=== PATIENT | female | born 1955 | race Caucasian/White ===

== ENCOUNTER 2019-04-20 12:13 | Outpatient (CLI) | payer BC ==
--- NOTE | 2019-04-20 12:47 | RAD ---
Lumbar spine: Total 3 views. Lateral views were obtained with neutral, flexion, and extension. INDICATIONS:Low back pain COMPARISON:None FINDINGS: Vertebral bodies maintain height and alignment. Alignment is preserved with flexion and extension. Mild to moderate degenerative osteophytes are seen from the lumbar vertebra. Loss of disc space at L4-5 and L5-S1. Normal alignment is maintained. No lytic or blastic process. Facet hypertrophy is noted. No soft tissue abnormality. IMPRESSION: [id number] degenerative changes of lumbar spine.
--- NOTE | 2019-04-20 17:19 | MRI ---
MRI Lumbar Spine Noncontrast: HISTORY: Chronic back pain radiating down right leg with associated numbness in left leg. COMPARISON: None FINDINGS: The visualized retroperitoneal structures demonstrate a normal appearance. Conus medullaris is normal in morphology and terminates at the L1-2 level. T12-L1 level: There is a mild disc osteophyte complex with only slight effacement of the ventral suba rachnoid space. The neural foramina are patent L1-2: There are mild endplate degenerative changes with mild loss of intervertebral disc height. Ther e is a broad-based disc osteophyte complex present eccentrically greater on the right resulting in effacement of the ventral aspect of the thecal sac. The left neural foramen is patent. There is mild right-sided neural foraminal narrowing. L2-3: There is minimal disc osteophyte complex resulting slight effacement of the ventral aspect of t he thecal sac. There is mild right and mild/moderate left-sided neural foraminal narrowing. L3-4: There is loss of intervertebral disc height. Osteophytes are seen anteriorly at this level. Dis c osteophyte complex is present which results in mild generalized narrowing of the central spinal canal. There are facet hypertrophic changes present. Findings result in moderate left and mild right- sided neural foraminal narrowing. L4-5: There is mild loss of intervertebral disc height. There is broad-based disc osteophyte complex present with left foraminal disc protrusion. Facet hypertrophic changes are present at this level greater on the left. Findings result in moderate to severe left-sided neural foraminal narrowing with mild right-sided neural foraminal narrowing. There is mild narrowing of the central spinal canal at this level. Ligamentous thickening is present. L5-S1: There is a broad-based disc osteophyte complex with central disc protrusion. This disc protrus ion does slightly efface the thecal sac and does encroach on the traversing bilateral S1 nerve roots. Facet hypertrophic changes are present at this level. There is moderate to severe right and mi ld left-sided neural foraminal narrowing. IMPRESSION: Multilevel disc degenerative changes. Findings are greatest involving the lower lumbar spine. There i s moderate to severe left-sided neural foraminal narrowing at the L4-5 level with moderate to severe right-sided neural foraminal narrowing at the L5-S1 level.
== END 2019-04-20 12:14 | disposition home or self-care (01) ==
LOC: SCSMRI 12:13
PROVIDERS: ATTEND Anesthesiology Pain Medicine
DX: M48.062 Spinal stenosis, lumbar region with neurogenic claudication (principal); M47.816 Spondylosis without myelopathy or radiculopathy, lumbar region; M48.07 Spinal stenosis, lumbosacral region
CPT/HCPCS: 72100; 72148

== ENCOUNTER 2019-06-22 05:35 | Day surgery (SDC) | payer BC ==
[2019-06-15 12:36] VITALS: BMI 29.0
[2019-06-15 13:49] LABS: Hemoglobin 13.8 g/dL (12.0-16.0); Mean Corpuscular Hemoglobin 31.6 pg (27.0-31.0); Platelet Count 320 thou/uL (130-400); RBC Distribution Width 11.9 % (11.5-14.5); Red Blood Cell (RBC) Count 4.37 mill/uL (4.20-5.40); White Blood Cell (WBC) Count 5.3 thou/uL (4.8-10.8)
[2019-06-15 14:13] LABS: Anion Gap 11 mmol/L (10-20); BUN (Urea Nitrogen) 14 mg/dL (9.8-20.1); Calc. Creatinine Clearance 109 mL/min (70-130); Calcium 9.9 mg/dL (7.8-10.44); Carbon Dioxide 29 mmol/L (23-31); Chloride 103 mmol/L (98-107); Estimated GFR-MDRD 86; Glucose 89 mg/dL (80-115); Potassium 4.1 mmol/L (3.5-5.1); Sodium 139 mmol/L (136-145)
--- NOTE | 2019-06-16 22:57 | EKG ---
Test Reason : Blood Pressure : / mmHG Vent. Rate : 070 BPM Atrial Rate : 070 BPM P-R Int : 186 ms QRS Dur : 088 ms QT Int : 412 ms P-R-T Axes : 054 092 051 degrees QTc Int : 444 ms Normal sinus rhythm Rightward axis Borderline ECG No previous ECGs available Confirmed by Ki GUZMÁN ([id number]) on 06/16/2019 10:56:53 PM Referred By: DULCE Confirmed By:Ki GUZMÁN
--- NOTE | 2019-06-21 21:35 | HP ---
This is Ahsan Marroquin PA-C dictating a report for Nick Choi MD. HISTORY OF PRESENT ILLNESS: Ms. Aviles is a very pleasant 63-year-old woman, here today for evaluation of a right-sided L5 radiculopathy that she had now for nearly one year. She has treated this with home exercises, medications, and now epidural steroid injections with Dr. Sorensen which only lasts for a short period of time. She has an MRI that reveals moderate to severe right-sided foraminal stenosis at L5 that would match her symptoms well. She denies weakness, but does report that her pains are worsened by walking and standing. PAST MEDICAL HISTORY: Significant for chronic pain syndrome, hypertension, hypothyroidism, osteoarthritis. PAST SURGICAL HISTORY: Tonsillectomy and tubal ligation. ALLERGIES: NO KNOWN DRUG ALLERGIES. CURRENT MEDICATIONS: Temazepam, losartan, citalopram. PHYSICAL EXAMINATION: GENERAL: The patient is alert, oriented x3. MUSCULOSKELETAL: Gait is mildly antalgic. Lower extremity motor exam is normal. She does have a positive right straight leg raise. ASSESSMENT: Lumbar radiculopathy. PLAN: Dr. Choi met with the patient, reviewed imaging, and advocated for a right L5 foraminotomy. He explained to the patient the risks, benefits, and alternatives to the procedure. The patient expressed understanding and elected to move forward with surgery as discussed. I do believe the patient is mentally competent and capable of making medical decisions for herself. We will move forward with surgery as planned. Job ID: [id number]
[2019-06-22] MEDS ORDERED: ceFAZolin Sodium (SDC) 2 GM/100 ML BAG ONE ×2 (06:00→09:24)
[2019-06-22] MEDS ORDERED: Thrombin 5000 UNITS/5 ML VIAL ONE (06:19)
[2019-06-22] MEDS ORDERED: Bupivacaine HCl 0.5%/Epinephrine 1:200,000/PF 30 ml Vial ONE (06:19)
[2019-06-22] MEDS ORDERED: Midazolam HCl 2 mg/2 ml Vial ONE ×2 (06:50→08:10)
[2019-06-22] MEDS ORDERED: Fentanyl 100 MCG/2 ML VIAL ONE ×2 (06:50→08:42)
[2019-06-22] MEDS ORDERED: HYDROcodone/Acetaminophen 5/325 mg Tablet ONE (09:24)
--- NOTE | 2019-06-22 10:41 | OP ---
DATE OF PROCEDURE: 06/22/2019 ENDS DOWN CHECKER: Ahsan Marroquin PA-C. INDICATION: Pain. DIAGNOSIS: L5 radiculopathy. PROCEDURES PERFORMED: Right L5 hemilaminectomy, medial facetectomy, and foraminotomy. ANESTHESIA: General. DESCRIPTION OF PROCEDURE: The patient was brought into the operating room and placed under general anesthesia. She was flipped from the supine to prone position on operating room table. A linear incision was planned over the L5 segment. After prepping and draping and after an appropriate operative pause, the incision was created. The soft tissues were swept away from midline. Self-retaining retractors were placed in the wound for optimal exposure. After confirming the appropriate level with C-arm fluoroscopy, high-speed cutting drill bit as well as 2, 3, and 4 mm Kerrisons were used to perform a laminectomy along the inferior aspect of L5 and superior aspect of S1. The laminectomy was extended laterally to encompass the medial aspect of the facet joint in order to adequately decompress the exiting L5 nerve root on the right. The wound was then irrigated. Hemostasis was maintained throughout. The wound was then closed in anatomic layers and a pressure dressing was applied. There were no known procedural complications. Job ID: [id number]
== END 2019-06-22 10:45 | disposition home or self-care (01) ==
LOC: SDC 05:35
PROVIDERS: ATTEND Neurological Surgery
PROC: 01NB0ZZ Release Lumbar Nerve, Open Approach (ICD-10-PCS; principal; 2019-06-22)
DX: M54.16 Radiculopathy, lumbar region (principal); M48.061 Spinal stenosis, lumbar region without neurogenic claudication; G89.4 Chronic pain syndrome; I10 Essential (primary) hypertension; M19.90 Unspecified osteoarthritis, unspecified site; E03.9 Hypothyroidism, unspecified; Z79.899 Other long term (current) drug therapy
CPT/HCPCS: 76000; 80048; 85027; 93005; 93010; J0670; J0690; J2250; J3010

== ENCOUNTER 2023-07-09 14:31 | Outpatient (CLI) | payer MEDICARE | END 2023-07-09 14:32 | disposition home or self-care (01) | LOC: SCSRAD 14:31 | PROVIDERS: ATTEND Family Medicine | DX: R05.1 Acute cough (principal); J98.6 Disorders of diaphragm | CPT/HCPCS: 71046; 87635 ==